=== PATIENT | male | born 1955 | race Caucasian/White ===

== ENCOUNTER 2017-03-01 21:19 | Inpatient (IN) ==
[2017-03-01] MEDS ORDERED: ACETAMINOPHEN 500 MG TABLET PO STA (22:46)
[2017-03-01] MEDS ORDERED: methylPREDNISolone SOD SUC 125 MG/2 ML VIAL IV STA (23:04)
[2017-03-01] MEDS ORDERED: MORPHINE 2 MG/1 ML SYRINGE IV STA (23:04)
[2017-03-01] MEDS ORDERED: ONDANSETRON 4 MG/2 ML VIAL IV STA (23:04)
[2017-03-01] MEDS ORDERED: FUROSEMIDE 100 MG/10 ML VIAL IV STA (23:04)
[2017-03-01] MEDS ORDERED: PIPERACILLIN/TAZOBACTAM 3,375 MG in SODIUM CHLORIDE 0.9% 100 ML IV STA (23:04)
[2017-03-01] MEDS ORDERED: ALBUTEROL 2.5 MG/3 ML NEB RESP TX SCH (23:30)
[2017-03-01 23:36] LABS: Basophils # 0.1 10*3/uL (0.0-0.2); Basophils % 0.6 % (0.0-0.8); Eosinophils # 0.2 10*3/uL (0.0-0.87); Eosinophils % 1.8 % (0.00-10.9); Hematocrit 43.4 VOL% (42.0-52.0); Hemoglobin 15.8 GM/DL (14.0-18.0); Immature Granulocytes % 0.5 %; Immature Granulocytes Absolute 0.04 #; Lymphocytes # 0.5 10*3/uL (1.4-4.0); Lymphocytes % 5.4 % (21.2-54.2); Mean Corpuscular HGB Conc 36.4 GM/DL (32-36); Mean Corpuscular Hemoglobin 31 PG (27-34); Mean Corpuscular Volume 85.3 FL (87-102); Mean Platelet Volume 9.5 FL (9.6-12.0); Monocytes # 0.5 10*3/uL (0.11-0.8); Monocytes % 5.6 % (1.7-12.7); Neutrophils # 7.5 10*3/uL (1.4-7.4); Neutrophils % 86.1 % (38.7-73.9); Platelet Count 158 T/CUMM (130-400); Red Blood Count 5.09 MC/CUMM (3.8-5.5); Red Cell Distribution Width 12.6 % (9.3-17.3); White Blood Count 8.7 T/CUMM (4-12)
[2017-03-01] MEDS ORDERED: MORPHINE 2 MG/1 ML SYRINGE ONE (23:37)
[2017-03-01] MEDS ORDERED: FUROSEMIDE 40 MG/4 ML VIAL ONE (23:37)
[2017-03-01] MEDS ORDERED: ONDANSETRON 4 MG/2 ML VIAL ONE (23:37)
[2017-03-01] MEDS ORDERED: methylPREDNISolone SOD SUC 125 MG/2 ML VIAL ONE (23:38)
[2017-03-01] MEDS ORDERED: ALBUTEROL 2.5 MG/3 ML NEB RESP TX ONE (23:45)
[2017-03-01 23:46] LABS: INR 1.1; PT Patient Result 11.9 SECS
[2017-03-01 23:59] LABS: Lactic Acid 1.1 MMOL/L (0.4-2.0)
[2017-03-02 00:01] LABS: Albumin 3.7 G/DL (3.4-5.0); Bilirubin,Total 0.5 MG/DL (0.2-1.0); Calcium 8.7 MG/DL (8.5-10.1); Magnesium 1.4 MG/DL (1.8-2.4); Osmolality,Calculated 270.5 MOS/KG (273-304); Potassium 4.2 MMOL/L (3.5-5.1); Total Protein 7.1 G/DL (6.4-8.3)
[2017-03-02 00:03] LABS: Troponin I Only 0.079 NG/ML (0.00-0.045)
[2017-03-02] MEDS ORDERED: MAGNESIUM SULF RIDER 2 GM in PREMIX 1 EACH IV STA (00:07)
[2017-03-02 00:15] LABS: ABG HCO3 24.4 MMOL/L (20-26); ABG Oxygen Saturation 96.1 % (95-100); ABG PCO2 35.2 MM HG (35-48); ABG PH 7.458 (7.35-7.45); ABG PO2 79.5 MM HG (80-95); ABG TCO2 25.4 MMOL/L (23-27); Allen Test Positive
[2017-03-02] MEDS ORDERED: LEVOFLOXACIN INJ 750 MG in PREMIX 1 EACH IV STA (00:16)
[2017-03-02] MEDS ORDERED: IBUPROFEN 800 MG TABLET PO STA (00:26)
[2017-03-02] MEDS ORDERED: LEVOFLOXACIN INJ 0 ML IV ONE (00:32)
[2017-03-02] MEDS ORDERED: IBUPROFEN 800 MG TABLET ONE (00:51)
[2017-03-02] MEDS ORDERED: MAGNESIUM SULF RIDER 50 ML IV ONE (01:41)
[2017-03-02] MEDS ORDERED: INSULIN LISPRO 100 UNIT/ML SUBCUT ONE (08:00)
[2017-03-02] MEDS ORDERED: PANTOPRAZOLE 40 MG TABLET PO ONE (09:52)
[2017-03-02] MEDS ORDERED: LEVOFLOXACIN INJ 150 ML IV ONE (09:52)
[2017-03-02] MEDS ORDERED: methylPREDNISolone SOD SUC 40 MG/1 ML VIAL ONE (09:53)
[2017-03-02] MEDS ORDERED: ONDANSETRON 4 MG/2 ML VIAL IV PRN (09:58)
[2017-03-02] MEDS ORDERED: SODIUM CHLORIDE 0.9% 3,200 ML IV ONE (09:58)
[2017-03-02] MEDS ORDERED: DEXTROSE 50% 25 GM/50 ML VIAL IV PRN (09:58)
[2017-03-02] MEDS ORDERED: GLUCAGON 1 MG VIAL IM PRN (09:58)
[2017-03-02] MEDS ORDERED: ALBUTEROL/IPRATROPIUM 3 ML NEB RESP TX PRN (09:58)
[2017-03-02] MEDS: PANTOPRAZOLE 40 MG TABLET PO SCH (10:00)
[2017-03-02] MEDS: methylPREDNISolone SOD SUC 40 MG/1 ML VIAL IV SCH ×2 (10:14→18:21)
[2017-03-02] MEDS: SODIUM CHLORIDE 0.9% 1,000 ML IV SCH (11:02)
[2017-03-02] MEDS: PIPERACILLIN/TAZOBACTAM 3,375 MG in SODIUM CHLORIDE 0.9% 100 ML IV SCH ×2 (11:02→18:22)
[2017-03-02] MEDS: ENOXAPARIN 40 MG/0.4 ML SYRINGE SUBCUT SCH (11:02)
[2017-03-02 11:13] LABS: INR 1.2; PT Patient Result 12.4 SECS; Partial Thromboplastin Time 30.6 SECS (0-40)
[2017-03-02] MEDS: INSULIN REGULAR 100 UNIT/ML SUBCUT SCH ×3 (11:43→21:01)
[2017-03-02 11:49] LABS: Apearance,Urine CLEAR (Clear); Bilirubin,Urine Negative (Negative); Blood, Urine Negative (Negative); Glucose,Urine (UA) >=500 mg/dL (Negative); Ketones,Urine 20 mg/dL (Negative); Mucus,Urine Occasional /LPF (Occasional); Nitrite,Urine Negative (Negative); Protein,Urine Negative; RBC,Urine <1 /HPF (0-4); Squamous Epithelial Cell,Urine Occasional /HPF (0-10); Urine Color Yellow (Yellow); Urine Specific Gravity 1.013 (1.001-1.035); Urine Urobilinogen < 2.0 EU/DL (0.2-1.0)
[2017-03-02] MEDS: CARVEDILOL 12.5 MG TABLET PO SCH (21:01)
[2017-03-02] MEDS: TAMSULOSIN 0.4 MG CAPSULE PO SCH (21:01)
[2017-03-02] MEDS: LEVOFLOXACIN INJ 750 MG in PREMIX 1 EACH IV SCH (23:16)
[2017-03-03] MEDS: SODIUM CHLORIDE 0.9% 1,000 ML IV SCH ×3 (02:24→10:53)
[2017-03-03] MEDS: PIPERACILLIN/TAZOBACTAM 3,375 MG in SODIUM CHLORIDE 0.9% 100 ML IV SCH ×3 (02:25→17:40)
[2017-03-03] MEDS: methylPREDNISolone SOD SUC 40 MG/1 ML VIAL IV SCH ×3 (02:25→17:34)
[2017-03-03 07:23] LABS: Basophils % 0.1 % (0.0-0.8); Hematocrit 40.1 VOL% (42.0-52.0); Hemoglobin 14.5 GM/DL (14.0-18.0); Immature Granulocytes % 0.5 %; Immature Granulocytes Absolute 0.09 #; Lymphocytes # 1.2 10*3/uL (1.4-4.0); Mean Corpuscular HGB Conc 36.2 GM/DL (32-36); Mean Corpuscular Hemoglobin 31 PG (27-34); Mean Corpuscular Volume 85.7 FL (87-102); Mean Platelet Volume 10.1 FL (9.6-12.0); Monocytes # 0.6 10*3/uL (0.11-0.8); Monocytes % 2.9 % (1.7-12.7); Neutrophils # 17.6 10*3/uL (1.4-7.4); Neutrophils % 90.5 % (38.7-73.9); Platelet Count 200 T/CUMM (130-400); Red Blood Count 4.68 MC/CUMM (3.8-5.5); Red Cell Distribution Width 12.8 % (9.3-17.3); White Blood Count 19.5 T/CUMM (4-12)
[2017-03-03 07:52] LABS: Albumin 2.9 G/DL (3.4-5.0); Bilirubin,Total 0.6 MG/DL (0.2-1.0); Calcium 8.2 MG/DL (8.5-10.1); Osmolality,Calculated 282.8 MOS/KG (273-304); Potassium 4.1 MMOL/L (3.5-5.1); Total Protein 6.1 G/DL (6.4-8.3)
[2017-03-03] MEDS: INSULIN REGULAR 100 UNIT/ML SUBCUT SCH ×4 (09:32→23:32)
[2017-03-03] MEDS: ASPIRIN EC 325 MG TABLET PO SCH (09:33)
[2017-03-03] MEDS: CARVEDILOL 12.5 MG TABLET PO SCH ×2 (09:33→17:35)
[2017-03-03] MEDS: TAMSULOSIN 0.4 MG CAPSULE PO SCH (09:33)
[2017-03-03] MEDS: PANTOPRAZOLE 40 MG TABLET PO SCH (09:33)
[2017-03-03] MEDS: ENOXAPARIN 40 MG/0.4 ML SYRINGE SUBCUT SCH (11:03)
[2017-03-03 12:59] LABS: Free T4 (Free Thyroxine) 1.5 NG/DL (0.76-1.46); Thyroid Stimulating Hormone 1.03 uIU/ml (0.358-3.74)
[2017-03-03] MEDS: MONTELUKAST 10 MG TABLET PO SCH (14:06)
[2017-03-03 14:18] LABS: ABG Base Excess 0.2 MMOL/L (-2.5-2.5); ABG HCO3 24.5 MMOL/L (20-26); ABG Oxygen Saturation 95.5 % (95-100); ABG PH 7.402 (7.35-7.45); ABG PO2 78.2 MM HG (80-95); ABG TCO2 21.3 MMOL/L (23-27); Allen Test Positive
[2017-03-03] MEDS: ALBUTEROL/IPRATROPIUM 3 ML NEB RESP TX SCH ×2 (14:22→19:38)
[2017-03-04] MEDS: LEVOFLOXACIN INJ 750 MG in PREMIX 1 EACH IV SCH ×2 (00:12→23:58)
[2017-03-04] MEDS: ALBUTEROL/IPRATROPIUM 3 ML NEB RESP TX SCH ×4 (01:03→20:11)
[2017-03-04] MEDS: methylPREDNISolone SOD SUC 40 MG/1 ML VIAL IV SCH ×3 (02:26→18:08)
[2017-03-04 02:55] LABS: % Iron Saturation 40.8 % (18-50)
[2017-03-04 02:58] LABS: Folate 16.3 NG/ML (5.4-24.0)
[2017-03-04] MEDS: SODIUM CHLORIDE 0.9% 1,000 ML IV SCH ×4 (04:35→23:59)
[2017-03-04] MEDS: PIPERACILLIN/TAZOBACTAM 3,375 MG in SODIUM CHLORIDE 0.9% 100 ML IV SCH ×3 (04:36→18:08)
[2017-03-04 07:33] LABS: Apearance,Urine CLEAR (Clear); Bilirubin,Urine Negative (Negative); Blood, Urine Negative (Negative); Glucose,Urine (UA) >=500 mg/dL (Negative); Ketones,Urine Negative (Negative); Nitrite,Urine Negative (Negative); Protein,Urine Negative; RBC,Urine <1 /HPF (0-4); Urine Color Yellow (Yellow); Urine Urobilinogen < 2.0 EU/DL (0.2-1.0); WBC,Urine 1 /HPF (0-6)
[2017-03-04] MEDS: INSULIN REGULAR 100 UNIT/ML SUBCUT SCH ×4 (08:33→21:51)
[2017-03-04] MEDS: PANTOPRAZOLE 40 MG TABLET PO SCH (08:34)
[2017-03-04] MEDS: TAMSULOSIN 0.4 MG CAPSULE PO SCH (08:34)
[2017-03-04] MEDS: CARVEDILOL 12.5 MG TABLET PO SCH ×2 (08:34→16:10)
[2017-03-04] MEDS: ASPIRIN EC 325 MG TABLET PO SCH (08:34)
[2017-03-04] MEDS: MONTELUKAST 10 MG TABLET PO SCH (08:34)
[2017-03-04 09:02] LABS: Basophils % 0.1 % (0.0-0.8); Hematocrit 39.5 VOL% (42.0-52.0); Hemoglobin 14.2 GM/DL (14.0-18.0); Immature Granulocytes % 1.2 %; Immature Granulocytes Absolute 0.19 #; Lymphocytes # 1.2 10*3/uL (1.4-4.0); Lymphocytes % 7.7 % (21.2-54.2); Mean Corpuscular HGB Conc 35.9 GM/DL (32-36); Mean Corpuscular Hemoglobin 31 PG (27-34); Mean Corpuscular Volume 85.9 FL (87-102); Mean Platelet Volume 9.8 FL (9.6-12.0); Monocytes # 0.4 10*3/uL (0.11-0.8); Monocytes % 2.4 % (1.7-12.7); Neutrophils # 14.1 10*3/uL (1.4-7.4); Neutrophils % 88.6 % (38.7-73.9); Platelet Count 217 T/CUMM (130-400); Red Cell Distribution Width 12.9 % (9.3-17.3); White Blood Count 15.9 T/CUMM (4-12)
[2017-03-04] MEDS: ENOXAPARIN 40 MG/0.4 ML SYRINGE SUBCUT SCH (10:14)
[2017-03-05] MEDS: ALBUTEROL/IPRATROPIUM 3 ML NEB RESP TX SCH ×3 (01:05→13:52)
[2017-03-05] MEDS: methylPREDNISolone SOD SUC 40 MG/1 ML VIAL IV SCH ×2 (01:45→09:35)
[2017-03-05] MEDS: SODIUM CHLORIDE 0.9% 1,000 ML IV SCH (01:48)
[2017-03-05] MEDS: PIPERACILLIN/TAZOBACTAM 3,375 MG in SODIUM CHLORIDE 0.9% 100 ML IV SCH ×2 (01:50→09:40)
[2017-03-05 06:43] LABS: Basophils % 0.3 % (0.0-0.8); Hematocrit 40.4 VOL% (42.0-52.0); Hemoglobin 14.6 GM/DL (14.0-18.0); Immature Granulocytes % 2.3 %; Lymphocytes # 1.1 10*3/uL (1.4-4.0); Lymphocytes % 8.6 % (21.2-54.2); Mean Corpuscular HGB Conc 36.1 GM/DL (32-36); Mean Corpuscular Hemoglobin 31 PG (27-34); Mean Corpuscular Volume 85.4 FL (87-102); Mean Platelet Volume 10.1 FL (9.6-12.0); Monocytes # 0.5 10*3/uL (0.11-0.8); Monocytes % 3.5 % (1.7-12.7); Neutrophils % 85.3 % (38.7-73.9); Platelet Count 217 T/CUMM (130-400); Red Blood Count 4.73 MC/CUMM (3.8-5.5); Red Cell Distribution Width 12.8 % (9.3-17.3); White Blood Count 12.9 T/CUMM (4-12)
[2017-03-05 07:16] LABS: Calcium 8.5 MG/DL (8.5-10.1); Magnesium 2.2 MG/DL (1.8-2.4); Osmolality,Calculated 284.5 MOS/KG (273-304); Potassium 4.1 MMOL/L (3.5-5.1); VLDL CHOLESTEROL 19.4 MG/DL
[2017-03-05 07:17] LABS: Free T4 (Free Thyroxine) 1.41 NG/DL (0.76-1.46); Risk Ratio 4.35
[2017-03-05] MEDS: TAMSULOSIN 0.4 MG CAPSULE PO SCH (09:35)
[2017-03-05] MEDS: ASPIRIN EC 325 MG TABLET PO SCH (09:35)
[2017-03-05] MEDS: CARVEDILOL 12.5 MG TABLET PO SCH ×2 (09:35→09:38)
[2017-03-05] MEDS: PANTOPRAZOLE 40 MG TABLET PO SCH (09:35)
[2017-03-05] MEDS: MONTELUKAST 10 MG TABLET PO SCH (09:35)
[2017-03-05] MEDS: ENOXAPARIN 40 MG/0.4 ML SYRINGE SUBCUT SCH (09:36)
[2017-03-05] MEDS: INSULIN REGULAR 100 UNIT/ML SUBCUT SCH ×2 (09:46→11:36)
[2017-03-05 14:01] LABS: Procalcitonin, S 0.32 ng/mL (<=0.15)
[2017-03-05 15:21] VITALS: BP 109/65
== END 2017-03-05 17:00 | disposition home or self-care (01) | DRG 871 ==
LOC: N.ED 21:19 → N.CC 03-02 01:37 → SUATTDRO 03-02 01:37 → N.CC 03-02 02:58 → N.5E 03-02 22:12
PROVIDERS: ADMIT Internal Medicine; ATTEND Internal Medicine

== ENCOUNTER 2017-04-29 13:05 | Inpatient (IN) ==
[2017-04-29] MEDS ORDERED: ACETAMINOPHEN 325 MG TABLET PO ONE (13:32)
[2017-04-29] MEDS ORDERED: ACETAMINOPHEN 500 MG TABLET ONE (14:31)
[2017-04-29] MEDS ORDERED: SODIUM CHLORIDE 0.9% 1,000 ML IV STA (14:33)
[2017-04-29] MEDS ORDERED: PIPERACILLIN/TAZOBACTAM 3,375 MG in SODIUM CHLORIDE 0.9% 100 ML IV STA (15:04)
[2017-04-29 15:17] LABS: Lactic Acid 1.1 MMOL/L (0.4-2.0)
[2017-04-29 15:25] LABS: Albumin 3.8 G/DL (3.4-5.0); Bilirubin,Total 0.7 MG/DL (0.2-1.0); Calcium 8.9 MG/DL (8.5-10.1); Potassium 4.1 MMOL/L (3.5-5.1); Total Protein 7.4 G/DL (6.4-8.3)
[2017-04-29 15:50] LABS: Basophils % 0.3 % (0.0-0.8); Eosinophils # 0.1 10*3/uL (0.0-0.87); Eosinophils % 0.8 % (0.00-10.9); Hematocrit 42.9 VOL% (42.0-52.0); Hemoglobin 14.9 GM/DL (14.0-18.0); Immature Granulocytes % 0.6 %; Immature Granulocytes Absolute 0.08 #; Lymphocytes # 0.6 10*3/uL (1.4-4.0); Lymphocytes % 4.3 % (21.2-54.2); Mean Corpuscular HGB Conc 34.7 GM/DL (32-36); Mean Corpuscular Hemoglobin 31 PG (27-34); Mean Corpuscular Volume 88.6 FL (87-102); Mean Platelet Volume 9.9 FL (9.6-12.0); Monocytes # 0.6 10*3/uL (0.11-0.8); Monocytes % 4.7 % (1.7-12.7); Neutrophils # 11.5 10*3/uL (1.4-7.4); Neutrophils % 89.3 % (38.7-73.9); Platelet Count 188 T/CUMM (130-400); Red Blood Count 4.84 MC/CUMM (3.8-5.5); Red Cell Distribution Width 13.2 % (9.3-17.3); White Blood Count 12.8 T/CUMM (4-12)
[2017-04-29] MEDS ORDERED: ACETAMINOPHEN 500 MG TABLET PO STA (16:06)
[2017-04-29] MEDS ORDERED: PIPERACILLIN/TAZOBACTAM 3,375 MG VIAL IV ONE (16:08)
[2017-04-29 16:50] LABS: Band Neutrophils 7 % (0-10); Eosinophils 1 % (0-10); Lymphocytes 3 % (20-55); Platelet Estimate Normal; Segmented Neutrophils 83 % (50-85); Total Cells Counted 100
[2017-04-29] MEDS ORDERED: ACETAMINOPHEN 325 MG TABLET PO PRN (17:02)
[2017-04-29] MEDS ORDERED: GLUCAGON 1 MG VIAL IM PRN (17:02)
[2017-04-29] MEDS ORDERED: DEXTROSE 50% 25 GM/50 ML VIAL IV PRN (17:02)
[2017-04-29] MEDS ORDERED: ALBUTEROL 2.5 MG/3 ML NEB RESP TX PRN (17:02)
[2017-04-29] MEDS ORDERED: PIPERACILLIN/TAZOBACTAM 3,375 MG in SODIUM CHLORIDE 0.9% 100 ML IV SCH (17:30)
[2017-04-29] MEDS: sitaGLIPtin 25 MG TABLET PO SCH (22:03)
[2017-04-29] MEDS: CARVEDILOL 12.5 MG TABLET PO SCH (22:03)
[2017-04-29] MEDS: metFORMIN 500 MG TABLET PO SCH (22:04)
[2017-04-29] MEDS: FLECAINIDE 50 MG TABLET PO SCH (22:04)
[2017-04-29] MEDS: INSULIN LISPRO 100 UNIT/ML SUBCUT SCH (22:05)
[2017-04-29] MEDS: ONDANSETRON 4 MG/2 ML VIAL IV PRN (22:07)
[2017-04-29] MEDS: ALUMINUM/MAGNES/SIMETH MAX STR 30 ML UDCUP PO PRN (22:07)
[2017-04-30] MEDS: PIPERACILLIN/TAZOBACTAM 3,375 MG in SODIUM CHLORIDE 0.9% 100 ML IV SCH ×3 (01:08→16:47)
[2017-04-30] MEDS: ALBUTEROL/IPRATROPIUM 3 ML NEB RESP TX SCH ×6 (01:36→23:58)
[2017-04-30] MEDS: ALUMINUM/MAGNES/SIMETH MAX STR 30 ML UDCUP PO PRN ×4 (04:42→21:55)
[2017-04-30 07:17] LABS: Basophils % 0.4 % (0.0-0.8); Eosinophils # 0.1 10*3/uL (0.0-0.87); Eosinophils % 1.6 % (0.00-10.9); Hematocrit 40.8 VOL% (42.0-52.0); Hemoglobin 14.7 GM/DL (14.0-18.0); Immature Granulocytes % 0.5 %; Immature Granulocytes Absolute 0.04 #; Lymphocytes % 11.7 % (21.2-54.2); Mean Corpuscular Hemoglobin 31 PG (27-34); Mean Corpuscular Volume 85.2 FL (87-102); Mean Platelet Volume 9.9 FL (9.6-12.0); Monocytes # 0.7 10*3/uL (0.11-0.8); Monocytes % 8.5 % (1.7-12.7); Neutrophils # 6.4 10*3/uL (1.4-7.4); Neutrophils % 77.3 % (38.7-73.9); Platelet Count 157 T/CUMM (130-400); Red Blood Count 4.79 MC/CUMM (3.8-5.5); White Blood Count 8.3 T/CUMM (4-12)
[2017-04-30 07:54] LABS: Osmolality,Calculated 274.8 MOS/KG (273-304); Potassium 3.6 MMOL/L (3.5-5.1); Risk Ratio 2.44; VLDL CHOLESTEROL 17.2 MG/DL
[2017-04-30] MEDS ORDERED: OLMESARTAN 20 MG TABLET PO SCH (09:00)
[2017-04-30] MEDS ORDERED: amLODIPine 5 MG TABLET PO SCH ×2 (09:00)
[2017-04-30] MEDS: OLMESARTAN 20 MG TABLET PO SCH (09:22)
[2017-04-30] MEDS: ONDANSETRON 4 MG/2 ML VIAL IV PRN (09:22)
[2017-04-30] MEDS: SIMVASTATIN 20 MG TABLET PO SCH (09:23)
[2017-04-30] MEDS: sitaGLIPtin 25 MG TABLET PO SCH ×2 (09:23→20:22)
[2017-04-30] MEDS: metFORMIN 500 MG TABLET PO SCH ×2 (09:23→20:22)
[2017-04-30] MEDS: CARVEDILOL 12.5 MG TABLET PO SCH ×2 (09:23→20:23)
[2017-04-30] MEDS: ASPIRIN EC 325 MG TABLET PO SCH (09:23)
[2017-04-30] MEDS: FLECAINIDE 50 MG TABLET PO SCH ×2 (09:23→20:22)
[2017-04-30] MEDS: INSULIN LISPRO 100 UNIT/ML SUBCUT SCH ×4 (09:23→20:29)
[2017-04-30] MEDS: amLODIPine 5 MG TABLET PO SCH (09:23)
[2017-04-30] MEDS: hydroCHLOROthiazide 12.5 MG CAPSULE PO SCH (09:23)
[2017-04-30] MEDS: MONTELUKAST 10 MG TABLET PO SCH (11:08)
[2017-04-30] MEDS: MEROPENEM 1,000 MG in SYRINGE 1 EACH IV SCH ×2 (14:19→20:21)
[2017-04-30] MEDS ORDERED: FLUTICASONE 50 MCG NASAL SPRAY 16 GM BOTTLE BOTH NARES PRN (17:05)
[2017-04-30] MEDS: OSELTAMIVIR 75 MG CAPSULE PO SCH (21:55)
[2017-04-30] MEDS: PANTOPRAZOLE 40 MG TABLET PO SCH (21:55)
[2017-05-01] MEDS: PIPERACILLIN/TAZOBACTAM 3,375 MG in SODIUM CHLORIDE 0.9% 100 ML IV SCH ×2 (01:13→09:47)
[2017-05-01] MEDS: MEROPENEM 1,000 MG in SYRINGE 1 EACH IV SCH ×3 (04:48→18:01)
[2017-05-01 06:45] LABS: Basophils % 0.2 % (0.0-0.8); Eosinophils # 0.1 10*3/uL (0.0-0.87); Eosinophils % 1.3 % (0.00-10.9); Hematocrit 43.9 VOL% (42.0-52.0); Hemoglobin 15.2 GM/DL (14.0-18.0); Immature Granulocytes % 0.6 %; Immature Granulocytes Absolute 0.05 #; Lymphocytes # 1.4 10*3/uL (1.4-4.0); Lymphocytes % 15.7 % (21.2-54.2); Mean Corpuscular HGB Conc 34.6 GM/DL (32-36); Mean Corpuscular Hemoglobin 30 PG (27-34); Mean Corpuscular Volume 87.1 FL (87-102); Mean Platelet Volume 10.1 FL (9.6-12.0); Monocytes # 1.1 10*3/uL (0.11-0.8); Monocytes % 12.6 % (1.7-12.7); Neutrophils # 6.3 10*3/uL (1.4-7.4); Neutrophils % 69.6 % (38.7-73.9); Platelet Count 197 T/CUMM (130-400); Red Blood Count 5.04 MC/CUMM (3.8-5.5); Red Cell Distribution Width 13.2 % (9.3-17.3); White Blood Count 9.1 T/CUMM (4-12)
[2017-05-01 07:14] LABS: Calcium 8.1 MG/DL (8.5-10.1); Osmolality,Calculated 276.7 MOS/KG (273-304); Potassium 4.5 MMOL/L (3.5-5.1)
[2017-05-01] MEDS: ALBUTEROL/IPRATROPIUM 3 ML NEB RESP TX SCH ×3 (08:40→20:40)
[2017-05-01] MEDS: metFORMIN 500 MG TABLET PO SCH ×2 (09:46→21:17)
[2017-05-01] MEDS: ASPIRIN EC 325 MG TABLET PO SCH (09:46)
[2017-05-01] MEDS: CARVEDILOL 12.5 MG TABLET PO SCH ×2 (09:46→21:17)
[2017-05-01] MEDS: PANTOPRAZOLE 40 MG TABLET PO SCH ×2 (09:46→21:17)
[2017-05-01] MEDS: amLODIPine 5 MG TABLET PO SCH (09:46)
[2017-05-01] MEDS: SIMVASTATIN 20 MG TABLET PO SCH (09:46)
[2017-05-01] MEDS: OSELTAMIVIR 75 MG CAPSULE PO SCH ×2 (09:46→21:17)
[2017-05-01] MEDS: MONTELUKAST 10 MG TABLET PO SCH (09:47)
[2017-05-01] MEDS: sitaGLIPtin 25 MG TABLET PO SCH ×2 (09:47→21:16)
[2017-05-01] MEDS: INSULIN LISPRO 100 UNIT/ML SUBCUT SCH ×4 (09:47→21:20)
[2017-05-01] MEDS: OLMESARTAN 20 MG TABLET PO SCH (09:47)
[2017-05-01] MEDS: FLECAINIDE 50 MG TABLET PO SCH ×2 (09:47→21:16)
[2017-05-01] MEDS: hydroCHLOROthiazide 12.5 MG CAPSULE PO SCH (09:47)
[2017-05-01] MEDS: LEVOFLOXACIN 750 MG TABLET PO SCH (13:23)
[2017-05-02] MEDS: ALBUTEROL/IPRATROPIUM 3 ML NEB RESP TX SCH ×4 (01:27→19:26)
[2017-05-02] MEDS: MEROPENEM 1,000 MG in SYRINGE 1 EACH IV SCH ×3 (02:33→17:46)
[2017-05-02 05:41] LABS: Basophils % 0.6 % (0.0-0.8); Eosinophils # 0.3 10*3/uL (0.0-0.87); Eosinophils % 4.3 % (0.00-10.9); Hematocrit 39.6 VOL% (42.0-52.0); Hemoglobin 13.7 GM/DL (14.0-18.0); Immature Granulocytes % 0.6 %; Immature Granulocytes Absolute 0.04 #; Lymphocytes # 2.3 10*3/uL (1.4-4.0); Lymphocytes % 33.8 % (21.2-54.2); Mean Corpuscular HGB Conc 34.6 GM/DL (32-36); Mean Corpuscular Hemoglobin 30 PG (27-34); Mean Platelet Volume 9.6 FL (9.6-12.0); Monocytes # 0.9 10*3/uL (0.11-0.8); Monocytes % 12.3 % (1.7-12.7); Neutrophils # 3.3 10*3/uL (1.4-7.4); Neutrophils % 48.4 % (38.7-73.9); Platelet Count 186 T/CUMM (130-400); Red Cell Distribution Width 13.1 % (9.3-17.3); White Blood Count 6.9 T/CUMM (4-12)
[2017-05-02 05:44] LABS: Calcium 8.4 MG/DL (8.5-10.1); Osmolality,Calculated 280.3 MOS/KG (273-304); Potassium 4.1 MMOL/L (3.5-5.1)
[2017-05-02] MEDS: FLECAINIDE 50 MG TABLET PO SCH ×2 (08:58→22:07)
[2017-05-02] MEDS: metFORMIN 500 MG TABLET PO SCH ×2 (08:58→22:07)
[2017-05-02] MEDS: PANTOPRAZOLE 40 MG TABLET PO SCH ×2 (08:58→22:07)
[2017-05-02] MEDS: ASPIRIN EC 325 MG TABLET PO SCH (08:58)
[2017-05-02] MEDS: OSELTAMIVIR 75 MG CAPSULE PO SCH ×2 (08:58→22:07)
[2017-05-02] MEDS: sitaGLIPtin 25 MG TABLET PO SCH ×2 (08:58→22:07)
[2017-05-02] MEDS: amLODIPine 5 MG TABLET PO SCH (08:58)
[2017-05-02] MEDS: hydroCHLOROthiazide 12.5 MG CAPSULE PO SCH (08:59)
[2017-05-02] MEDS: OLMESARTAN 20 MG TABLET PO SCH (08:59)
[2017-05-02] MEDS: LEVOFLOXACIN 750 MG TABLET PO SCH (08:59)
[2017-05-02] MEDS: SIMVASTATIN 20 MG TABLET PO SCH (08:59)
[2017-05-02] MEDS: CARVEDILOL 12.5 MG TABLET PO SCH ×2 (08:59→22:07)
[2017-05-02] MEDS: MONTELUKAST 10 MG TABLET PO SCH (08:59)
[2017-05-02] MEDS: INSULIN LISPRO 100 UNIT/ML SUBCUT SCH ×4 (08:59→22:07)
[2017-05-03] MEDS: ALBUTEROL/IPRATROPIUM 3 ML NEB RESP TX SCH ×2 (01:11→07:37)
[2017-05-03] MEDS: MEROPENEM 1,000 MG in SYRINGE 1 EACH IV SCH ×2 (04:05→10:39)
[2017-05-03 07:36] VITALS: BP 126/83
[2017-05-03] MEDS: OSELTAMIVIR 75 MG CAPSULE PO SCH (10:39)
[2017-05-03] MEDS: MONTELUKAST 10 MG TABLET PO SCH (10:40)
[2017-05-03] MEDS: LEVOFLOXACIN 750 MG TABLET PO SCH (10:40)
[2017-05-03] MEDS: ASPIRIN EC 325 MG TABLET PO SCH (10:40)
[2017-05-03] MEDS: CARVEDILOL 12.5 MG TABLET PO SCH (10:40)
[2017-05-03] MEDS: FLECAINIDE 50 MG TABLET PO SCH (10:40)
[2017-05-03] MEDS: OLMESARTAN 20 MG TABLET PO SCH (10:40)
[2017-05-03] MEDS: hydroCHLOROthiazide 12.5 MG CAPSULE PO SCH (10:41)
[2017-05-03] MEDS: PANTOPRAZOLE 40 MG TABLET PO SCH (10:41)
[2017-05-03] MEDS: SIMVASTATIN 20 MG TABLET PO SCH (10:41)
[2017-05-03] MEDS: sitaGLIPtin 25 MG TABLET PO SCH (10:41)
[2017-05-03] MEDS: metFORMIN 500 MG TABLET PO SCH (10:41)
[2017-05-03] MEDS: amLODIPine 5 MG TABLET PO SCH (10:41)
[2017-05-03] MEDS: INSULIN LISPRO 100 UNIT/ML SUBCUT SCH (10:42)
[2017-05-21] MEDS ORDERED: ALBUTEROL/IPRATROPIUM 3 ML NEB RESP TX PRN (05:20)
[2017-05-21] MEDS ORDERED: GLUCAGON 1 MG VIAL IM PRN ×2 (05:22→05:36)
[2017-05-21] MEDS ORDERED: DEXTROSE 50% 25 GM/50 ML VIAL IV PRN ×2 (05:22→05:36)
[2017-05-21] MEDS ORDERED: MORPHINE 2 MG/1 ML SYRINGE IV PRN (05:28)
[2017-05-21] MEDS ORDERED: VANCOMYCIN INJ 1,500 MG in SODIUM CHLORIDE 0.9% 500 ML IV SCH (05:30)
[2017-05-21] MEDS ORDERED: MEROPENEM 1,000 MG in SYRINGE 1 EACH IV SCH (05:30)
[2017-05-21] MEDS ORDERED: ENOXAPARIN 40 MG/0.4 ML SYRINGE SUBCUT SCH (05:30)
[2017-05-21] MEDS ORDERED: ACETAMINOPHEN 325 MG TABLET PO PRN (05:34)
[2017-05-21] MEDS ORDERED: INSULIN LISPRO 100 UNIT/ML SUBCUT SCH ×2 (07:30)
[2017-05-21] MEDS ORDERED: TAMSULOSIN 0.4 MG CAPSULE PO SCH (21:00)
[2017-05-23] MEDS ORDERED: PROPOFOL 200 MG/20 ML VIAL IV ONE ×2 (10:57)
== END 2017-05-03 12:35 | disposition home or self-care (01) | DRG 871 ==
LOC: N.ED 13:05 → N.EDINP 15:21 → SUATTDRO 15:21 → N.5E 18:31
PROVIDERS: ADMIT Family Medicine; ATTEND Internal Medicine

== ENCOUNTER 2017-05-21 00:02 | Inpatient (IN) ==
[2017-05-21] MEDS ORDERED: SODIUM CHLORIDE 0.9% 1,000 ML IV STA (02:02)
[2017-05-21] MEDS ORDERED: LEVOFLOXACIN INJ 750 MG in PREMIX 1 EACH IV STA (02:06)
[2017-05-21 02:42] LABS: Basophils % 0.3 % (0.0-0.8); Eosinophils # 0.1 10*3/uL (0.0-0.87); Eosinophils % 0.6 % (0.00-10.9); Hematocrit 44.9 VOL% (42.0-52.0); Hemoglobin 15.5 GM/DL (14.0-18.0); Immature Granulocytes % 0.8 %; Immature Granulocytes Absolute 0.12 #; Lymphocytes # 0.5 10*3/uL (1.4-4.0); Lymphocytes % 3.2 % (21.2-54.2); Mean Corpuscular HGB Conc 34.5 GM/DL (32-36); Mean Corpuscular Hemoglobin 30 PG (27-34); Mean Corpuscular Volume 86.8 FL (87-102); Mean Platelet Volume 9.7 FL (9.6-12.0); Monocytes # 0.4 10*3/uL (0.11-0.8); Monocytes % 2.2 % (1.7-12.7); Neutrophils # 14.5 10*3/uL (1.4-7.4); Neutrophils % 92.9 % (38.7-73.9); Platelet Count 172 T/CUMM (130-400); Red Blood Count 5.17 MC/CUMM (3.8-5.5); Red Cell Distribution Width 12.8 % (9.3-17.3); White Blood Count 15.6 T/CUMM (4-12)
[2017-05-21] MEDS ORDERED: LEVOFLOXACIN INJ 150 ML IV ONE (02:59)
[2017-05-21] MEDS ORDERED: ACETAMINOPHEN 500 MG TABLET ONE (03:08)
[2017-05-21 03:11] LABS: Albumin 4.4 G/DL (3.4-5.0); Bilirubin,Total 0.7 MG/DL (0.2-1.0); Calcium 9.2 MG/DL (8.5-10.1); Osmolality,Calculated 275.1 MOS/KG (273-304); Potassium 4.2 MMOL/L (3.5-5.1); Total Protein 7.2 G/DL (6.4-8.3)
[2017-05-21] MEDS ORDERED: ACETAMINOPHEN 500 MG TABLET PO STA (03:14)
[2017-05-21 04:08] LABS: Band Neutrophils 24 % (0-10); Eosinophils 1 % (0-10); Lymphocytes 2 % (20-55); Segmented Neutrophils 73 % (50-85); Total Cells Counted 100
[2017-05-21] MEDS ORDERED: ACETAMINOPHEN 325 MG TABLET PO PRN (06:49)
[2017-05-21] MEDS ORDERED: GLUCAGON 1 MG VIAL IM PRN (06:54)
[2017-05-21] MEDS ORDERED: DEXTROSE 50% 25 GM/50 ML VIAL IV PRN (06:54)
[2017-05-21] MEDS ORDERED: MORPHINE 2 MG/1 ML SYRINGE IV PRN (06:55)
[2017-05-21] MEDS ORDERED: ENOXAPARIN 40 MG/0.4 ML SYRINGE SUBCUT SCH (07:00)
[2017-05-21] MEDS ORDERED: MEROPENEM 1,000 MG VIAL IV ONE (07:40)
[2017-05-21] MEDS ORDERED: ENOXAPARIN 40 MG/0.4 ML SYRINGE ONE (07:40)
[2017-05-21] MEDS: MEROPENEM 1,000 MG in SYRINGE 1 EACH IV SCH ×3 (07:46→23:11)
[2017-05-21] MEDS: INSULIN LISPRO 100 UNIT/ML SUBCUT SCH ×4 (08:00→21:09)
[2017-05-21 08:09] LABS: Basophils % 0.2 % (0.0-0.8); Eosinophils # 0.2 10*3/uL (0.0-0.87); Eosinophils % 1.2 % (0.00-10.9); Hemoglobin 14.3 GM/DL (14.0-18.0); Immature Granulocytes % 0.6 %; Lymphocytes # 0.7 10*3/uL (1.4-4.0); Mean Corpuscular HGB Conc 34.9 GM/DL (32-36); Mean Corpuscular Hemoglobin 30 PG (27-34); Mean Corpuscular Volume 85.6 FL (87-102); Mean Platelet Volume 9.7 FL (9.6-12.0); Monocytes # 0.5 10*3/uL (0.11-0.8); Monocytes % 3.1 % (1.7-12.7); Neutrophils # 15.4 10*3/uL (1.4-7.4); Neutrophils % 90.9 % (38.7-73.9); Platelet Count 178 T/CUMM (130-400); Red Blood Count 4.79 MC/CUMM (3.8-5.5); Red Cell Distribution Width 12.8 % (9.3-17.3)
[2017-05-21] MEDS: ALBUTEROL/IPRATROPIUM 3 ML NEB RESP TX PRN ×2 (08:30→17:21)
[2017-05-21 08:32] LABS: Band Neutrophils 4 % (0-10); Eosinophils 4 % (0-10); Giant Platelets Few; Hypochromasia 1+; Lymphocytes 2 % (20-55); Ovalocytes Slight; Platelet Estimate Normal; Segmented Neutrophils 85 % (50-85); Total Cells Counted 100
[2017-05-21] MEDS ORDERED: PANTOPRAZOLE 40 MG VIAL IV SCH (09:00)
[2017-05-21] MEDS ORDERED: PANTOPRAZOLE 40 MG VIAL IV ONE (09:29)
[2017-05-21] MEDS ORDERED: ONDANSETRON 4 MG/2 ML VIAL IV STA (10:12)
[2017-05-21] MEDS ORDERED: ONDANSETRON 4 MG/2 ML VIAL ONE (10:13)
[2017-05-21] MEDS: VANCOMYCIN INJ 1,500 MG in SODIUM CHLORIDE 0.9% 500 ML IV SCH ×2 (10:38→21:08)
[2017-05-21] MEDS ORDERED: INSULIN LISPRO 100 UNIT/ML SUBCUT ONE (11:27)
[2017-05-21 12:56] LABS: Immunoglobulin A 247 MG/DL (70-400); Immunoglobulin G 911 MG/DL (700-1600); Immunoglobulin M 57 MG/DL (40-230)
[2017-05-21] MEDS: PANTOPRAZOLE 40 MG TABLET PO SCH ×2 (17:05→18:54)
[2017-05-22] MEDS: INSULIN LISPRO 100 UNIT/ML SUBCUT SCH ×4 (08:09→20:59)
[2017-05-22] MEDS: MEROPENEM 1,000 MG in SYRINGE 1 EACH IV SCH ×3 (09:08→23:42)
[2017-05-22] MEDS: PANTOPRAZOLE 40 MG TABLET PO SCH ×3 (09:08→18:30)
[2017-05-22] MEDS: VANCOMYCIN INJ 1,500 MG in SODIUM CHLORIDE 0.9% 500 ML IV SCH ×2 (09:09→20:59)
[2017-05-22] MEDS ORDERED: BISACODYL 5 MG TABLET PO ONE (12:10)
[2017-05-22 20:30] LABS: Osmolality,Calculated 282.4 MOS/KG (273-304)
[2017-05-22] MEDS: CARVEDILOL 12.5 MG TABLET PO SCH (20:59)
[2017-05-22] MEDS: FLECAINIDE 50 MG TABLET PO SCH (20:59)
[2017-05-22] MEDS ORDERED: SIMVASTATIN 20 MG TABLET PO SCH (21:00)
[2017-05-22 23:30] LABS: Apearance,Urine CLEAR (Clear); Bilirubin,Urine Negative (Negative); Blood, Urine Negative (Negative); Glucose,Urine (UA) 50 mg/dL (Negative); Ketones,Urine Negative (Negative); Nitrite,Urine Negative (Negative); Protein,Urine Negative; RBC,Urine <1 /HPF (0-4); Urine Color Straw (Yellow); Urine Specific Gravity 1.005 (1.001-1.035); Urine Urobilinogen < 2.0 EU/DL (0.2-1.0); WBC,Urine <1 /HPF (0-6)
[2017-05-23] MEDS: VANCOMYCIN INJ 1,500 MG in SODIUM CHLORIDE 0.9% 500 ML IV SCH ×2 (05:44→15:36)
[2017-05-23 06:20] LABS: Basophils % 0.4 % (0.0-0.8); Eosinophils # 0.2 10*3/uL (0.0-0.87); Eosinophils % 4.8 % (0.00-10.9); Hematocrit 42.6 VOL% (42.0-52.0); Hemoglobin 14.7 GM/DL (14.0-18.0); Immature Granulocytes % 0.4 %; Immature Granulocytes Absolute 0.02 #; Lymphocytes # 1.6 10*3/uL (1.4-4.0); Lymphocytes % 32.5 % (21.2-54.2); Mean Corpuscular HGB Conc 34.5 GM/DL (32-36); Mean Corpuscular Hemoglobin 30 PG (27-34); Mean Corpuscular Volume 85.9 FL (87-102); Monocytes # 0.4 10*3/uL (0.11-0.8); Neutrophils # 2.5 10*3/uL (1.4-7.4); Neutrophils % 52.9 % (38.7-73.9); Platelet Count 203 T/CUMM (130-400); Red Blood Count 4.96 MC/CUMM (3.8-5.5); Red Cell Distribution Width 12.8 % (9.3-17.3); White Blood Count 4.8 T/CUMM (4-12)
[2017-05-23] MEDS: PANTOPRAZOLE 40 MG TABLET PO SCH (06:37)
[2017-05-23 06:41] LABS: Albumin 3.5 G/DL (3.4-5.0); Osmolality,Calculated 279.4 MOS/KG (273-304)
[2017-05-23 06:44] LABS: PT Patient Result 10.4 SECS; Partial Thromboplastin Time 28.5 SECS (0-40)
[2017-05-23] MEDS: INSULIN LISPRO 100 UNIT/ML SUBCUT SCH ×2 (08:16→13:32)
[2017-05-23] MEDS ORDERED: MONTELUKAST 10 MG TABLET PO SCH (09:00)
[2017-05-23] MEDS ORDERED: TAMSULOSIN 0.4 MG CAPSULE PO SCH (09:00)
[2017-05-23] MEDS ORDERED: PROPOFOL 200 MG/20 ML VIAL IV ONE (10:57)
[2017-05-23] MEDS: MEROPENEM 1,000 MG in SYRINGE 1 EACH IV SCH ×2 (11:00→15:36)
[2017-05-23] MEDS: CARVEDILOL 12.5 MG TABLET PO SCH (11:00)
[2017-05-23] MEDS: FLECAINIDE 50 MG TABLET PO SCH (11:01)
[2017-05-23 13:08] VITALS: BP 121/73
== END 2017-05-23 15:38 | disposition home or self-care (01) | DRG 871 ==
LOC: N.ED 00:02 → N.EDINP 06:46 → SUATTDRO 06:46 → N.EDINP 15:12 → N.5E 15:21
PROVIDERS: ADMIT Internal Medicine; ATTEND Pediatrics